=== PATIENT | female | born 1980 ===

== ENCOUNTER 2017-01-05 18:30 | Inpatient (IN) | payer OTHER, MEDICAID ==
[~2017-01-05] VITALS: Ht 157.5 cm; Wt 69.9 kg
--- NOTE | ~2017-01-05 | HP ---
ADMIT: 01/05/2017 RM/LOC: 226 [facility] MR#: [id number] [address] [address] MICHI TUCKER [address] [place] [address] History and Physical SEX: F AGE: 36 : 1980 DATE OF SERVICE: REASON FOR ADMISSION: Induction of labor. HISTORY OF PRESENT ILLNESS: The patient is a 36-year-old, 4, para 0-0- 3-0, who presents to Labor and Delivery at 39 and 0/7th weeks' gestation for scheduled induction of labor at term. The patient's has been complicated by advanced maternal age. Psoriatic arthritis, hypothyroidism, and history of recurrent spontaneous . The patient's arthritis is worsening in the 3rd trimester and so Maternal Medicine recommended induction of labor at 39 weeks, so she will be able to restart her previous medications. At time of admission, she noted occasional contractions. She denied any vaginal bleeding or loss of fluid. LABORATORY DATA: Blood type O positive, antibody screen negative, HIV negative, rubella immune, RPR nonreactive, hep B surface antigen negative, gonorrhea and chlamydia negative. Normal quad screen. Normal 1-hour glucose tolerance test, and group B strep is negative. PAST MEDICAL HISTORY: Psoriatic arthritis and hypothyroidism. PAST SURGICAL HISTORY: None. CURRENT MEDICATIONS: 1. Synthroid 75 mcg daily. 2. Clotrimazole cream as needed. 3. vitamin daily. 4. Enstilar foam daily. FAMILY HISTORY: Paternal grandmother with colon cancer. SOCIAL HISTORY: The patient is single. She denies any alcohol, tobacco, or drug use. PHYSICAL EXAMINATION: VITAL SIGNS: On admission; blood pressure 121/63, pulse 96, temperature 97.8, and respirations 16. GENERAL: The patient is alert and oriented, in no acute distress. HEART: Regular rate and rhythm without murmurs, gallops, or rubs. LUNGS: Clear to auscultation bilaterally. ABDOMEN: Soft, nontender, and gravid. EXTREMITIES: No edema. No calf tenderness. heart tones are in the 120s with moderate variability and accelerations ADMIT: 01/05/2017 RM/LOC: 226 [facility] MR#: [id number] [address] GEMA BETZYMICHI [address] [place] [address] History and Physical SEX: F AGE: 36 : 1980 present. Contractions are irregular. Cervix 1 cm dilated, uneffaced, and -2 station. ASSESSMENT/PLAN: 1. A 36-year-old, 4, para 0-0-3-0 at 39 and 0/7th weeks' gestation. 2. Psoriatic arthritis. Plan to induce labor, so she can restart current medications. 3. Hypothyroidism. 4. Advanced maternal age. PLAN: Plan to induce labor with misoprostol, and we will anticipate a spontaneous vaginal delivery. Lala Zurita MD/ mary JOB #: [id number] CC: Lala Zurita, Attending Physician Lala Zurita, Family Physician
--- NOTE | ~2017-01-05 | FD ---
ADMIT: 01/05/2017 RM/LOC: 226 [facility] MR#: [id number] [address] [address] MICHI TUCKER [address] [place] [address] Final Diagnosis SEX: F AGE: 36 : 1980 ADMISSION DATE: 01/05/2017 DISCHARGE DATE: 01/08/2017 FINAL DIAGNOSIS: 1. Intrauterine at term. 2. Advanced maternal age. 3. Hypothyroidism. 4. Psoriatic arthritis. PROCEDURE: Spontaneous vaginal delivery. Lala Zurita MD/ veena JOB #: [id number] CC: Lala Zurita MD, Attending Physician Lala Zurita MD, Family Physician
[2017-01-09] MEDS ORDERED: CALTRATE-600 D600 MG PO (19:02)
[2017-01-09] MEDS ORDERED: ASA CHILDREN'S81 MG PO (19:02)
[2017-01-09] MEDS ORDERED: CIMZIA PO (19:02)
[2017-01-09] MEDS ORDERED: TYLENOL #3 DPS1 TAB PO (19:03)
[2017-01-09] MEDS ORDERED: SYNTHROID DP0.075 MG PO (19:03)
[2017-01-09] MEDS ORDERED: NIPPLECREAM TP (19:03)
[2017-01-09] MEDS ORDERED: PRENATAL VIT1 TAB PO (19:03)
[2017-01-09] MEDS ORDERED: MOTRIN-DPS800 MG PO (19:03)
--- NOTE | 2017-01-26 09:14 | OR ---
ADMIT: 01/05/2017 RM/LOC: 226 [facility] MR#: [id number] [address] [address] MICHI TUCKER [address] [place] [address] Operative/Delivery Room Report SEX: F AGE: 36 : 1980 SURGERY DATE: 01/07/2017 SURGEON: Lala Zurita MD NAME OF PROCEDURE: Spontaneous vaginal delivery. PREOPERATIVE DIAGNOSES: 1. Intrauterine at 39-1/7th weeks' gestation. 2. Advanced maternal age. 3. Hypothyroidism. 4. Psoriatic arthritis. POSTOPERATIVE DIAGNOSES: 1. Intrauterine at 39-1/7th weeks' gestation. 2. Advanced maternal age. 3. Hypothyroidism. 4. Psoriatic arthritis. FINDINGS: Liveborn female infant, scores 9 at 1 minute and 9 at 5 minute, weight 7 pounds 5 ounces. ESTIMATED BLOOD LOSS: 200 mL. ANESTHESIA: Local infiltration of 1% lidocaine. COMPLICATIONS: None. INDICATIONS FOR PROCEDURE: The patient is a 36-year-old, 4, para 0-0- 3-0, who presented to Labor and Delivery at 39-0/7th weeks' gestation for a scheduled induction of labor at term. The patient's had been complicated by advanced maternal age, hypothyroidism, and psoriatic arthritis. Due to this, it was recommended by [facility] to proceed with induction of labor at 39 weeks so she could restart her medications. The patient received 3 doses of misoprostol and had a catheter placed for further cervical ripening. The patient then had Pitocin augmentation of labor. The patient progressed through labor to completely dilated and pushed, bringing the infant's vertex to the perineum. DESCRIPTION OF PROCEDURE: The patient was noted to be complete and pushing with the 's vertex at the perineum. The patient pushed and the infant's vertex delivered in the LUCILA position over midline. She continued to push. ADMIT: 01/05/2017 RM/LOC: 226 [facility] MR#: [id number] [address] [address] MICHI TUCKER [address] [place] [address] Operative/Delivery Room Report SEX: F AGE: 36 : 1980 The anterior shoulder delivered, the posterior shoulder followed, and the remainder of the delivered without difficulty as well. The was dried and handed off to the mother's abdomen where nursing personnel were in attendance. Twenty units of Pitocin were placed in IV bag to firm the uterus. Cord was clamped and cut. The placenta then delivered intact. The cervix was examined and was noted to be free of lacerations. The vaginal vault and perineum were examined. There were noted to be bilateral first-degree lacerations which were repaired with 2 [id number] stitches of 3-0 Vicryl. There was also noted to be a right periurethral laceration, which was repaired with single [id number] stitch of 3-0 Vicryl as well. The patient tolerated the procedure well. All sponge and needle counts were correct. The patient and her recovered in the room in stable condition. Lala Zurita MD/ mary JOB #: [id number] CC: Lala Zurita, Attending Physician Lala Zurita, Family Physician
== END 2017-01-08 15:45 | disposition home or self-care (01) | DRG 775 ==
LOC: BC 18:30 → 2LDRP 18:30 → BC 01-12 08:00
PROVIDERS: ADMIT Obstetrics & Gynecology
PROC: 0UQMXZZ Repair Vulva, External Approach (ICD-10-PCS; principal; 2017-01-07)
PROC: 10907ZC Drainage of Amniotic Fluid, Therapeutic from Products of Conception, Via Natural or Artificial Opening (ICD-10-PCS; principal; 2017-01-07)
PROC: 10E0XZZ Delivery of Products of Conception, External Approach (ICD-10-PCS; principal; 2017-01-07)
PROC: 3E0P7GC Introduction of Other Therapeutic Substance into Female Reproductive, Via Natural or Artificial Opening (ICD-10-PCS; principal; 2017-01-07)
PROC: 0HQ9XZZ Repair Perineum Skin, External Approach (ICD-10-PCS; principal; 2017-01-07)
DX: O99.72 Diseases of the skin and subcutaneous tissue complicating childbirth (principal); L40.50 Arthropathic psoriasis, unspecified; O77.0 Labor and delivery complicated by meconium in amniotic fluid; O99.284 Endocrine, nutritional and metabolic diseases complicating childbirth; E03.9 Hypothyroidism, unspecified; O71.82 Other specified trauma to perineum and vulva; O70.0 First degree perineal laceration during delivery; Z3A.39 39 weeks gestation of pregnancy; Z37.0 Single live birth